=== PATIENT | female | born 1960 | race Caucasian/White ===

== ENCOUNTER → 2016-12-27 12:57 | Outpatient (CLI) | payer MEDICAID ==
[2014-10-28 09:45] VITALS: BMI 20.8
[~2016-12-27 12:57] MED LIST: HYDROCODON-ACE1 EAC7 PO; XANAX1 MG PO
== END | disposition home or self-care (01) ==
LOC: D.US 12:57
DX: R09.89 Other specified symptoms and signs involving the circulatory and respiratory systems (principal)

== ENCOUNTER → 2017-01-01 14:06 | Outpatient (CLI) | payer MEDICAID ==
[2014-10-28 09:45] VITALS: BMI 20.8
== END | disposition home or self-care (01) ==
LOC: D.CT 14:06
DX: I73.9 Peripheral vascular disease, unspecified (principal)

== ENCOUNTER 2017-01-09 14:55 | Inpatient (IN) | payer MEDICAID ==
[~2017-01-09] VITALS: Ht 170.2 cm; Wt 69.1 kg
--- NOTE | ~2017-01-09 | HEMODYNAMI ---
PATIENT:NAN SILVERIO MEDICAL RECORD: [id number] : 58 [id number] ADMISSION DATE: 01/09/17 Generatedon:01/10/201713:07 Patient name: NAN SILVERIO Patient #: [id number] SSN : : 1960 Date of study: 01/10/2017 Page: Of Hemodynamic Procedure Report Patient Data Patient Demographics Procedure consent was obtained First Name: NAN Gender: Female Last Name: JEAN CLAUDE : 1960 Middle Initial: E Age: 56 year(s) Patient #: [id number] Race: Unknown Additional ID: [id number] Contact details Address: [address] [place] [address] State: [place] City: [place] Zip code: [address] Admission Admission Data Admission Date: 01/09/2017 Admission Time: 14:55 Room #: D.2238 Procedure Procedure Types Cath Procedure Peripheral Cath Diagnostic Procedure Miscellaneous Procedure Description Procedure Date Procedure Date: 01/10/2017 Procedure Start Time: 11:03 Procedure Staff Name Function Temo Lopes MD Performing Physician Geno Downing RT Scrub Anahi Avila RN Nurse Prosper Gimenez RT Monitor Procedure Data Cath Procedure Fluoroscopy Diagnostic fluoroscopy Total fluoroscopy Time: 11 time: 11 min min Diagnostic fluoroscopy Total fluoroscopy dose: 464 dose: 464 mGy mGy Contrast Material Contrast Material Type Amount (ml) Isovue 300 154 Entry Location Entry Primary Successful Side Size Upsize Upsize Entry Closure Succes sful Closure Location (Fr) 1 (Fr) 2 (Fr) Remarks Device Remarks Femoral Right 5 Fr 6 Fr Exoseal artery Short Femoral Left 5 Fr 6 Fr Exoseal artery Short Diagnostic catheters Device Type Used For End Catheter Placement Merit ULTRA BOLUS FLUSH 5Fr 65CM catheter Procedure Medications Medication Administration Route Dosage Benadryl I.V. 50 mg Zofran I.V. 4 mg Versed I.V. 1 mg Fentanyl I.V. 50 mcg Heparin Bolus I.V. 5000 units Nitroglycerin IC/IA I.A. 200 mcg Fentanyl I.V. 50 mcg Versed I.V. 1 mg Heparin Bolus I.V. 2000 units Fentanyl I.V. 50 mcg Versed I.V. 1 mg Fentanyl I.V. 50 mcg Versed I.V. 1 mg Hemodynamics Rest Heart Rate: 77 (bpm) Snapshots Pre Cath Intra NCS Post Cath Vital Signs Time Heart Resp SPO2 NIBP (mmHg) Rhythm Pain Sedation Rate (ipm) (%) Status Level (bpm) 10:52:23 69 16 95 143/75(120) NSR 0 (11) 10(A) , No pain 10:56:37 75 23 98 143/79(102) NSR 0 (11) 10(A) , No pain 11:00:51 78 14 96 155/80(120) NSR 0 (11) 10(A) , No pain 11:05:07 74 16 97 150/79(120) NSR 0 (11) 10(A) , No pain 11:09:27 77 16 97 142/69(113) NSR 0 (11) 10(A) , No pain 11:13:43 75 14 98 144/70(106) NSR 0 (11) 9(A) , No pain 11:17:59 73 15 98 141/73(98) NSR 0 (11) 9(A) , No pain 11:22:15 76 18 99 132/71(106) NSR 0 (11) 9(A) , No pain 11:26:27 74 16 98 123/74(113) NSR 0 (11) 9(A) , No pain 11:30:37 75 14 97 120/69(93) NSR 0 (11) 9(A) , No pain 11:34:47 75 13 97 126/69(89) NSR 0 (11) 9(A) , No pain 11:38:59 74 13 98 132/65(99) NSR 0 (11) 9(A) , No pain 11:43:13 72 14 98 128/68(106) NSR 0 (11) 9(A) , No pain 11:47:25 75 15 96 133/69(94) NSR 0 (11) 9(A) , No pain 11:51:37 75 19 96 140/74(111) NSR 0 (11) 9(A) , No pain 11:55:51 74 24 96 127/74(112) NSR 0 (11) 9(A) , No pain 12:00:01 73 15 98 143/72(101) NSR 0 (11) 9(A) , No pain 12:04:17 71 15 96 143/73(116) NSR 0 (11) 9(A) , No pain 12:08:33 72 14 100 121/73(95) NSR 0 (11) 9(A) , No pain 12:12:41 74 18 98 132/70(104) NSR 0 (11) 9(A) , No pain 12:16:54 72 17 97 135/67(115) NSR 0 (11) 9(A) , No pain 12:21:08 81 15 96 135/68(101) NSR 0 (11) 9(A) , No pain 12:25:22 75 15 96 150/74(99) NSR 0 (11) 9(A) , No pain 12:29:41 70 14 96 149/75(119) NSR 0 (11) 9(A) , No pain 12:33:55 78 23 99 135/86(95) NSR 0 (11) 9(A) , No pain 12:38:09 75 13 97 127/71(109) NSR 0 (11) 9(A) , No pain 12:42:19 79 17 97 142/76(114) NSR 0 (11) 9(A) , No pain 12:46:34 80 19 95 120/73(92) NSR 0 (11) 9(A) , No pain 12:50:46 83 16 96 139/72(107) NSR 0 (11) 9(A) , No pain 12:55:00 80 19 96 134/74(113) NSR 0 (11) 9(A) , No pain 12:59:12 76 12 94 143/77(122) NSR 0 (11) 9(A) , No pain 13:03:26 80 7 95 145/74(84) NSR 0 (11) 9(A) , No pain Medications Time Medication Route Dose Verified Delivered Reason Notes Ef fectiveness by by 11:00:15 Benadryl I.V. 50 mg Anahi Anahi for itching Margarita Avila RN RN 11:00:51 Zofran I.V. 4 mg Anahi Anahi for nausea Margarita Avila RN RN 11:10:05 Versed I.V. 1 mg Anahi Anahi for sedation Margarita Avila RN RN 11:10:21 Fentanyl I.V. 50 Anahi Anahi for sedation mcg Margarita Avila RN RN 11:40:29 Heparin Bolus I.V. 5000 Anahi Anahi for units Margarita Margarita anticoagulation RN RN 11:42:15 Nitroglycerin I.A. 200 Anahi Temo IC/IA mcg Margarita Lopes MD RN 12:00:45 Fentanyl I.V. 50 Anahi Anahi for sedation mcg Margarita Avila RN RN 12:00:53 Versed I.V. 1 mg Anahi Anahi for sedation Margarita Avila RN RN 12:25:36 Heparin Bolus I.V. 2000 Anahi Anahi for units Margarita Margarita anticoagulation RN RN 12:30:46 Fentanyl I.V. 50 Anahi Anahi for sedation mcg Margarita Avila RN RN 12:30:53 Versed I.V. 1 mg Anahi Anahi for sedation Margarita Avila RN RN 12:40:02 Fentanyl I.V. 50 Anahi Anahi for sedation mcg Margarita Avila RN RN 12:40:13 Versed I.V. 1 mg Anahi Anahi for sedation Margarita Avila RN showplace manager Log Time Note 10:24:14 Prosper Gimenez RT (R) (CV) sent for patient. Start room use. 10:24:25 Time tracking: Regular hours 10:24:29 Plan of Care:Hemodynamics will remain stable., Cardiac rhythm will remain stable., Comfort level will be maintained., Respiratory function will remain adequate., Patient/ family verbilizes understanding of procedure., Procedure tolerated without complication., Recovers from procedure without complications.. 10:24:35 Patient received from Med/Surg to IR Alert and oriented. Tansferred to table in Supine position. 10:24:37 Correct patient and procedure confirmed by team. 10:24:39 Signed procedure consent form obtained from patient. 10:24:40 Full Disclosure recording started 10:24:41 ECG and BP/O2 sat monitors applied to patient. 10:24:44 - 10:24:51 H&P Date Dictated: 01/10/2017 H&P Addendum completed by physician on day of procedure. (MUST COMPLETE FOR ALL OUTPATIENTS). 10:24:53 Pre-procedure instructions explained to patient. 10:24:53 Pre-op teaching completed and patient verbalized understanding. 10:24:55 Family in waiting room. 10:24:58 Patient NPO since Dinner. 10:36:06 Use device set IR Diagnostic 10:36:07 Acist Syringe opened to sterile field. 10:36:08 Acist Hand Control opened to sterile field. 10:36:08 Acist Manifold opened to sterile field. 10:36:08 Bag Decanter opened to sterile field. 10:36:09 Sterile Angiographic Pack opened to sterile field. 10:36:16 Is the patient allergic to Iodine/contrast media? No. 10:36:18 Was the patient premedicated? No 10:36:20 Is patient on blood thinner?Yes 10:36:23 ACC The patient was administered the following blood thiners within the last 24 hours: ACCAspirin 10:36:26 Patient diabetic? No. 10:36:27 - 10:36:28 ----Pre-sedation anethsthesia assessment.---- 10:36:32 Previous problem with sedation/anesthesia? No ? 10:36:33 Snore? Yes 10:36:35 Sleep apnea? No 10:36:37 Deviated septum? No 10:36:37 Opens mouth fully? Yes 10:36:39 Sticks out tongue? Yes 10:36:41 Airway obstruction? No ? 10:36:43 Dentures? Yes ? 10:36:44 - 10:36:52 Pre procedure: right dorsailis pedis pulse Doppler 10:36:55 Pre procedure: left dorsailis pedis pulse Doppler 10:36:58 Pre procedure: right posterior tibial pulse Doppler 10:37:01 Pre procedure: left posterior tibial pulse Doppler 10:37:13 Patient pain scale 0/10 no pain. 10:37:22 IV patent on arrival in right wrist with 0.9% NaCl at [facility]. 10:37:27 Sharps counted by scrub and verified by R.NBreonna 10:37:27 Alarms reviewed by RBreonna N. 10:37:30 Bilateral groins area was prepped with chlora-prep and draped in steril e fashion 10:51:14 Baseline sample Acquired. 10:51:14 Vital chart was started 10:51:18 Rhythm: sinus rhythm 10:57:39 Physician arrived 10:57:39 --------ALL STOP TIME OUT------ 10:57:40 Final Timeout: patient, procedure, and site verified with staff and physician. All members of the team are in agreement. 10:57:43 Bilateral groins site verified by team. 10:57:47 Physical assessment completed. ASA score P 2 - A patient with mild systemic disease as per Temo Lopes MD. 10:57:51 Sedation plan: IV Moderate Sedation Versed, Fentanyl 11:00:15 Benadryl 50 mg I.V. was administered by Anahi Avila RN; for itching; 11:00:51 Zofran 4 mg I.V. was administered by Anahi Avila RN; for nausea; 11:00:52 Procedure started. 11:03:03 Local anesthetic to right femoral artery with Lidocaine 1% by Temo Lopes MD.INITIAL ACCESS ONLY 11:10:05 Versed 1 mg I.V. was administered by Anahi Avila RN; for sedation; 11:10:21 Fentanyl 50 mcg I.V. was administered by Anahi Avila RN; for sedation; 11:11:49 A Merit ULTRA BOLUS FLUSH 5Fr 65CM catheter was advanced over the wire and used for . 11:11:50 Terumo 5Fr Mcalpin Sheath opened to sterile field. 11:11:51 Micropuncture VSI 4FR kit opened to sterile field. 11:11:52 Genymobile DOC .035 guide wire opened to sterile field. 11:11:53 TUBING, CONTRAST INJCTN HI PRES opened to sterile field. 11:12:03 A 5 Fr sheath was inserted into the Right Femoral artery 11:22:07 Local anesthetic to left femerol artery with Lidocaine 1% by Temo Lopes MD.ADDITIONAL ACCESS 11:22:52 A 5 Fr sheath was inserted into the Left Femoral artery 11:23:30 Cordis 5Fr BRITE TIP 11cm sheath opened to sterile field. 11:30:34 Genymobile DOC .035 guide wire opened to sterile field. 11:31:12 TerumSatmetrix ANGLE 180L glide wire opened to sterile field. 11:31:12 CXI Catheter 90cm opened to sterile field. 11:31:30 TerAgorique TORQUE DEVICE PLASTIC .038 opened to sterile field. 11:40:29 Heparin Bolus 5000 units I.V. was administered by Anahi Avila RN; for anticoagulation; 11:42:15 Nitroglycerin IC/IA 200 mcg I.A. was administered by Temo Lopes MD; ; 11:47:01 BasixTOUCH Inflation Syringe opened to sterile field. 11:47:34 Cook BLANCA 260 guide wire opened to sterile field. 11:59:26 Cordis 6Fr BRITE TIP 11cm sheath opened to sterile field. 11:59:27 Cordis 6Fr BRITE TIP 11cm sheath opened to sterile field. 11:59:34 Sheath upsized to a 6 Fr Short. 11:59:41 Sheath upsized to a 6 Fr Short. 12:00:27 Inflation number: 1 A Cordis Powerflex Pro 4.0 x 40 x 135cm balloon was prepped and advanced across the Proximal Common Iliac, Left, then inflated to 0 SIOMARA for 0:00 (min:sec). 12:00:45 Fentanyl 50 mcg I.V. was administered by Anahi Avila RN; for sedation; 12:00:53 Versed 1 mg I.V. was administered by Anahi Avila RN; for sedation; 12:03:21 BasixTOUCH Inflation Syringe opened to sterile field. 12:05:28 Terumo 5FR ANGLED 65CM glide catheter opened to sterile field. 12:08:04 Cordis SMART 10 X 40 X 120 stent was deployed across Proximal Common Iliac, Right . 12:08:07 Cook BLANCA 260 guide wire opened to sterile field. 12:08:16 Cordis SMART 10 X 60 X 120 stent was deployed across Proximal Common Iliac, Left . 12:14:46 Inflation number: 2 A Cordis Powerflex Pro 8.0 x 40 x 80cm balloon was prepped and advanced across the Proximal Common Iliac, Left, then inflated to 0 SIOMARA for 0:00 (min:sec). 12:15:10 Inflation number: 1 A Cordis Powerflex Pro 8.0 x 40 x 80cm balloon was prepped and advanced across the Proximal Common Iliac, Right, then inflated to 0 SIOMARA for 0:00 (min:sec). 12:23:34 Cordis SMART 8 X 60 X 120 stent was deployed across Proximal Common Iliac, Left . 12:25:36 Heparin Bolus 2000 units I.V. was administered by Anahi Avila RN; for anticoagulation; 12:26:08 Inflation number: 3 A Cordis Powerflex Pro 6.0 X 60 X 135 balloon was prepped and advanced across the Proximal Common Iliac, Left, then inflated to 0 SIOMARA for 0:00 (min:sec). 12:30:46 Fentanyl 50 mcg I.V. was administered by Anahi Avila RN; for sedation; 12:30:53 Versed 1 mg I.V. was administered by Anahi Avila RN; for sedation; 12:35:55 7 x 60 everflex stent deployed lot#[id number] 12:40:02 Fentanyl 50 mcg I.V. was administered by Anahi Avila RN; for sedation; 12:40:13 Versed 1 mg I.V. was administered by Anahi Avila RN; for sedation; 12:44:38 Cordis 6Fr Exoseal opened to sterile field. 12:44:38 Cordis 6Fr Exoseal opened to sterile field. 12:52:45 Sheath removed intact; hemostasis achieved with Exoseal to the Right Femoral artery. 12:53:03 Sheath removed intact; hemostasis achieved with Exoseal to the Left Femoral artery. 12:53:27 Procedure ended.(Physican Out) 13:01:52 Fluoroscopy time 11.00 minutes. 13:02:02 Fluoroscopy dose: 464 mGy 13:02:02 Flurop Dose total: 464 13:02:13 Contrast amount:Isovue 300 154ml. 13:02:15 Sharps counted by scrub and verified by R.N. 13:02:19 Post-op/insertion site Right Femoral artery dressed using a 4 x 4 and Tegaderm. 13:02:22 Post-op/insertion site Left Femoral artery dressed using a 4 x 4 and Tegaderm. 13:02:27 Post right femoral artery:stable 13:02:31 Post left femerol artery:stable 13:02:32 Post Procedure Pulses reassessed and unchanged 13:02:36 Post-procedure physical assessment completed. ASA score P 2 - A patient with mild systemic disease as per Temo Lopes MD. 13:02:38 Post procedure rhythm: unchanged. 13:02:40 Post procedure instruction explained to patient.Patient verbalizes understanding. 13:02:41 Procedure and supply charges have been captured, reviewed, submitted an d are correct. 13:06:01 Report given to Med/Surg. 13:06:06 Patient transfered to Med/Surg with Bed. 13:07:49 Vital chart was stopped Intervention Summary Intervention Notes Time ActionType Lesion and Equipment Action# Pressure Duration Attributes Used 12:00:27 Inflate Proximal Cordis 1 0 00:00 balloon Common Powerflex Iliac, Left Pro 4.0 x 40 x 135cm balloon 12:08:04 Deploy self Proximal Cordis 1 expanding Common SMART 10 stent Iliac, X 40 X Right 120 stent 12:08:16 Deploy self Proximal Cordis 1 expanding Common SMART 10 stent Iliac, Left X 60 X 120 stent 12:14:46 Inflate Proximal Cordis 2 0 00:00 balloon Common Powerflex Iliac, Left Pro 8.0 x 40 x 80cm balloon 12:15:10 Inflate Proximal Cordis 1 0 00:00 balloon Common Powerflex Iliac, Pro 8.0 x Right 40 x 80cm balloon 12:23:34 Deploy self Proximal Cordis 1 expanding Common SMART 8 X stent Iliac, Left 60 X 120 stent 12:26:08 Inflate Proximal Cordis 3 0 00:00 balloon Common Powerflex Iliac, Left Pro 6.0 X 60 X 135 balloon Device Usage Item Name Manufacture Quantity Catalog Number Hospital Part Current Min imal Lot# / Charge Number Stock Stock Serial# Code Acist Syringe Acist 1 75733 165781 153762 902695 20 Medical Systems Inc Acist Hand Acist 1 96694 973472 432618 053090 5 Control Medical Systems Inc Acist Acist 1 71569 467433 635469 011531 5 Manifold Medical Systems Inc Bag Decanter Microtek 1 2002S 502811 78909 576282 5 Medical Inc. Sterile Cardinal 1 [id number] 969725 062894 5 Angiographic Health Pack Merit ULTRA Merit 1 [id number] 765676 371672 5 BOLUS FLUSH Medical 5Fr 65CM catheter Terumo 5Fr Terumo 1 [id number] 365034 307319 811635 40 Mcalpin Sheath Micropuncture VSI VASCULAR 1 7266V 820886 082208 5 VSI 4FR kit SOLUTIONS Cook DOC .035 [facility] 2 E27903 225862 709275 5 [id number] guide wire 9351546 TUBING, Merit 1 [id number] 008025 050983 234810 5 CONTRAST Medical INJCTN HI PRES Cordis 5Fr Cardinal 1 [id number] 631800 400563 5 BRITE TIP Health 11cm sheath Terumo ANGLE Terumo 1 [id number] 635032 240891 227665 5 180L glide wire CXI Catheter [facility] 1 [id number] 332213 675020 216765 5 [id number] 90cm Terumo TORQUE [place] 1 TD01 692716 752042 132894 5 DEVICE Scientific PLASTIC .038 BasixTOUCH Merit 2 ZT9006 783685 126976 154333 5 Inflation Medical Syringe Cook BLANCA [facility] 2 W92692 014431 083997 5 5689530 260 guide 0526957 wire Cordis 6Fr Cardinal 2 [id number] 259356 799473 5 BRITE TIP Health 11cm sheath Cordis Cardinal 1 [id number] 829013 930089 104907 5 Powerflex Pro Health 4.0 x 40 x 135cm balloon Terumo 5FR Terumo 1 [id number] 272680 544287 5 ANGLED 65CM glide catheter Cordis SMART Cardinal 1 [id number] 058639 171336 5 [id number] 10 X 40 X 120 Health stent Cordis SMART Cardinal 1 [id number] 049714 351117 5 28604856 10 X 60 X 120 Health stent Cordis Cardinal 2 [id number] 474426 419425 718310 5 Powerflex Pro Health 8.0 x 40 x 80cm balloon Cordis SMART Cardinal 1 [id number] 189652 085969 5 80660881 8 X 60 X 120 Health stent Cordis Cardinal 1 [id number] 139355 164753 733962 5 Powerflex Pro Health 6.0 X 60 X 135 balloon Cordis 6Fr Cardinal 2 EX600 921771 254747 863135 10 [id number] [facility] [employer] [id number] Signature Audit [place] Stage Time Signature Unsigned Intra-Procedure 01/10/2017 Prosper 1:07:45 PM Ammy RT (R) (CV) Signatures Monitor : Prosper Signature : Ammy RT Date : Time : [facility] [address] [place] [address]
[2017-01-09 16:11] VITALS: BP 150/73
[2017-01-09 16:29] LABS: BASOPHILS 0.2 % (0-2); EOSINOPHILS 2.2 % (0-7); HEMATOCRIT 41.3 % (36.0-48.0); IMMATURE GRANULOCYTES 0.4 % (0-5); LYMPHOCYTES 33.8 % (15-50); MCHC 33.9 g/dL (31.0-37.0); MCV 94.3 fL (80.0-100.0); MEAN PLATELET VOLUME 8.7 fL (7.4-10.4); MONOCYTES 10.4 % (2-11); PLATELET COUNT 120 10x3/uL (130-400); RBC 4.38 10x6/uL (4.00-5.40); RDW 13.2 % (11.5-14.5); WBC 5.5 10x3/uL (4.8-10.8)
[2017-01-09 16:42] LABS: INR 0.89 (0.85-1.17); PROTIME 11.9 SECONDS (11.6-15.0)
[2017-01-09 16:50] LABS: ALBUMIN 3.8 g/dL (3.4-5.0); ALKALINE PHOSPHATASE 43 U/L (46-116); ALT (SGPT) 30 U/L (10-68); BILIRUBIN - TOTAL 0.23 mg/dL (0.2-1.3); CALC OSMOLALITY 278 mosm/kg (275-300); CALCIUM 9.3 mg/dL (8.5-10.1); CARBON DIOXIDE 25.6 mmol/L (21.0-32.0); CHLORIDE - SERUM 104 mmol/L (98-107); CHOL - HDL RATIO 4.2 ratio (2.3-4.1); CHOLESTEROL, TOTAL 240 mg/dL (0-200); CREATININE - SERUM 0.7 mg/dL (0.6-1.3); GLUCOSE 106 mg/dL (74-106); HDL CHOLESTEROL 57 mg/dL (32-96); LDL CHOLESTEROL 164 mg/dL (0-100); LDL-HDL RATIO 2.9 ratio (1.5-3.5); POTASSIUM - SERUM 3.7 mmol/L (3.5-5.1); PROTEIN - SERUM 6.8 g/dL (6.4-8.2); SODIUM 140 mmol/L (136-145); TRIGLYCERIDE 99 mg/dL (30-200); UREA NITROGEN 12 mg/dL (7-18); eGFR NON AFRICAN AMERICAN > 90 mL/min (90-120)
[2017-01-09] MEDS ORDERED: HYDROCODONE-APA1 TAB PO (17:42)
[2017-01-09] MEDS ORDERED: BAYER CHEWABLE81 MG PO (17:42)
[2017-01-09] MEDS ORDERED: VALIUM10 MG PO (17:43)
[2017-01-09 17:44] VITALS: Ht 170.2 cm; Wt 69.1 kg
--- NOTE | 2017-01-09 19:40 | NUR ---
ASSESSMENT COMPLETED, NO ACUTE DISTRESS NOTED, FAMILY IN ROOM, R WRIST IV INFUSING WITH EASE, DENIES NEEDS AT THIS TIME, SR'S UP, CL IN REACH, WILL MONITOR
[2017-01-09 20:00] VITALS: BP 129/76
--- NOTE | 2017-01-09 20:52 | NUR ---
PRN ATIVAN GIVEN PER MAR FOR ANXIETY, SILVINA WELL, DENIES NEEDS, CL IN REACH
--- NOTE | 2017-01-09 22:40 | NUR ---
SITTING UP IN BED TALKING WITH VISITOR, DENIES NEEDS AT THIS TIME, REMINDED OF NPO STATUS AFTER MIDNIGHT, UNDERSTANDING VOICED, SR'S UP, CL IN REACH
--- NOTE | 2017-01-09 23:48 | NUR ---
RESTING WITH NO EYES CLOSED, RESP WITH EASE, NO DISTRESS NOTED, FALL PRECAUTIONS IN PLACE, FAMILY IN ROOM, CL IN REACH
[2017-01-10] VITALS (11 sets, daily range): BP systolic 15–168; BP diastolic 57–78
--- NOTE | 2017-01-10 01:33 | NUR ---
RESTING WITH EYES CLOSED, RESP WITH EASE, NO DISTRESS NOTED, DTR IN ROOM, SR'S UP, CL IN REACH
--- NOTE | 2017-01-10 08:18 | NUR ---
AWAKE AND ALERT. ORIENTED X3. UP TO BR WITH SBA. HAD APPROXIMATLY 300CC EMESIS. ASSISTED TO PERFORM ORAL CARE PER STAFF. LUNGS ARE CLEAR BILATERALLY, NO COUGH NOTED. SKIN IS INTACT WITHOUT REDNESS. IV TO RIGHT WRIST PATENT WITHOUT REDNESS AT INSERTION SITE. PEDAL PULSES VERY FAINT. BILATERAL FEET WARM. FAMILY AT BEDSIDE.
--- NOTE | 2017-01-10 08:19 | NUR ---
Patient Name: NAN SILVERIO Admission Status: Elective Accout number: [id number] Admission Date: 01-09-2017 : 1960 Admission Diagnosis: Attending: TONY Current LOS: 1 Anticipated DC Date: 01-13-2017 Planned Disposition: Home Primary Insurance: [place] [employer] [facility] Discharge Planning Comments: CM MET WITH PATIENT AND DAUGHTER IN LAW (CLOVIS) REGARDING D/C NEEDS AND PLANS. PATIENT LIVES WITH HER DAUGHTER (MARLA) AND IT IS SAFE AND THERE ARE 2 STEPS W/RAILS TO ENTER HOME AND NO STAIRS INSIDE. PATIENTS FAMILY WILL DRIVE HER HOME. PATIENT IS INDEPENDENT AT HOME AND HAS NO DME. PATIENTS PCP IS DR. AGUILAR AND PHARMACY IS [facility] ON [address]. PATIENT DOES NOT THINK SHE WILL NEED HOME HEALTH. CM WILL CONTINUE TO FOLLOW PATIENT WITH D/C NEEDS AND PLANS. PCP DR. LAUREN [facility] [address] [phone] CLOVIS (DIL) [phone] MARLA (DAUGHTER) [phone] Hoop Coiler: Judy Mcqueen Is the patient Alert and Oriented? Yes 0 * How many steps to enter\exit or inside your home? 2 W/RAILS 0 * PCP DR. AGUILAR 0 * Pharmacy [facility] [address] 0 * Preadmission Environment Home with Family 0 * ADLs Independent 0 * Equipment None 0 * List name and contact numbers for known caregivers / representatives who currently or will assist patient after discharge: CLOVIS (DAUGHTER IN LAW) [phone] MARLA (DAUGHTER) [phone] 0 * Community resources currently utilized None 0 * Additional services required to return to the preadmission environment? Yes 0 * Can the patient safely return to the preadmission environment? Yes 0 * Has this patient been hospitalized within the prior 30 days at any hospital? No 0 Grand Total: 0
--- NOTE | 2017-01-10 10:45 | NUR ---
OFF UNIT VIA BED FOR PROCEDURE.
--- NOTE | 2017-01-10 13:26 | NUR ---
RETURNED FROM PROCEDURE. DRESSINGS TO BILATERAL GROINS DRY AND INTACT. PEDAL PULSES PALPABLE. FAMILY IN ROOM.
--- NOTE | 2017-01-10 14:40 | NUR ---
ASSISTED WITH BED RICHARD PER STAFF. VOIDED 200CC CLEAR YELLOW URINE. VSS. GROINS CONTINUE DRY AND INTACT. PEDAL PULSES PALLPABLE.
[2017-01-10 15:11] LABS: HEMATOCRIT 41.8 % (36.0-48.0); HEMOGLOBIN 13.8 g/dL (12-16); MCH 31.7 pg (26.0-34.0); MCV 96.1 fL (80.0-100.0); MEAN PLATELET VOLUME 8.7 fL (7.4-10.4); RBC 4.35 10x6/uL (4.00-5.40); RDW 13.3 % (11.5-14.5); WBC 6.1 10x3/uL (4.8-10.8)
[2017-01-10 15:23] LABS: INR 1.02 (0.85-1.17); PROTIME 13.3 SECONDS (11.6-15.0)
[2017-01-10 15:24] LABS: APTT 102.7 SECONDS (22.8-39.4)
--- NOTE | 2017-01-10 16:30 | NUR ---
UP TO BR WITH STAFF. VOIDED WITHOUT DIFFICULTY. C/O TERRIBLE HEADACHE.
--- NOTE | 2017-01-10 18:00 | NUR ---
DR NICHOLSON NOTIFIED OF C/O INTENSE HEADACHE. NEW ORDERS RECEIVED.
--- NOTE | 2017-01-10 18:15 | NUR ---
DR NICHOLSON HERE. GIVEN TYLENOL AND TORADOL FOR HEADACHE. WILL MONITOR.
--- NOTE | 2017-01-10 18:56 | NUR ---
IV SITED TO LEFT FOREARM AFTER ONE ATTEMPT WITH 22G. HEPARIN DRIP INITIATED AT THIS TIME.
--- NOTE | 2017-01-10 19:35 | NUR ---
ALERT, AWAKE TALKING TO VISITOR. RATES PAIN LEVEL OF LEFT FOOT AT 8 ON 0-10 NUMBER SCALE, DESCRIBED THOBBING. HAS WINDER TENDER WITH DILAUDID FOR PAIN CONTROL. IV IN R WRIST WITH NS INFUSING AT 30 ML/HR AND WINDER TENDER WITH DILAUDID. L FA IV HAS HEPARIN INFUSING AT 13 ML/HR. DENIES ANY NEEDS. CALL LIGHT IN REACH.
--- NOTE | 2017-01-10 21:11 | NUR ---
REFILLED BASKET ASSEMBLER DILAUDID SYRINGE. RATES PAIN LEVEL AT 6 OF LEFT FOOT, DESCRIBED A THROBBING PAIN.
--- NOTE | 2017-01-10 22:00 | NUR ---
PTT LAB RESULT IS 75.4. NO CHANGES MADE PER HEPARIN PROTOCOL. NEXT PTT LAB IS IN AM.
[2017-01-11] VITALS: BP 122/53
--- NOTE | 2017-01-11 03:03 | NUR ---
AMBULATED TO BATHROOM AND TO SINK TO BRUSH TEETH. REQUESTED SOME MILK.
[2017-01-11 03:55] LABS: HEMATOCRIT 38.3 % (36.0-48.0); HEMOGLOBIN 12.7 g/dL (12-16); MCH 31.8 pg (26.0-34.0); MCHC 33.2 g/dL (31.0-37.0); MCV 95.8 fL (80.0-100.0); MEAN PLATELET VOLUME 9.1 fL (7.4-10.4); RDW 13.2 % (11.5-14.5)
[2017-01-11 04:00] VITALS: BP 131/83
--- NOTE | 2017-01-11 04:40 | NUR ---
PTT 200.0. TURNED HEPARIN DRIP OFF FOR 1 HOUR PER PROTOCOL. ORDER NEXT PTT LAB DRAW AT 10:40 A.M.
--- NOTE | 2017-01-11 05:40 | NUR ---
RESTARTED HEPARIN DRIP AT 10 ML/HR. TURNED DOWN FROM 13 ML/HR.
[2017-01-11 08:18] VITALS: BP 123/65
--- NOTE | 2017-01-11 08:33 | NUR ---
SCHEDULED MEDICATIONS ADMINISTERED WELL PRN ZOFRAN FOR NAUSEA AT THIS TIME. ASSESSMENT PERFORMED. CALL LIGHT IN REACH, WILL CONTINUE WITH PLAN OF CARE.
--- NOTE | 2017-01-11 11:15 | NUR ---
SCHEDULED MEDICATIONS ADMINISTERED AT THIS TIME. CALL LIGHT IN REACH, WILL CONTINUE WITH PLAN OF CARE.
[2017-01-11] MEDS ORDERED: PLAVIX75 MG PO (12:14)
[2017-01-11] MEDS ORDERED: LIPITOR10 MG PO (12:15)
[2017-01-11] MEDS ORDERED: LOW DOSE ASPIRI81 M1 PO (12:15)
--- NOTE | 2017-01-11 12:30 | NUR ---
D/C HOME AT THIS TIME. IV D/C WITH CATH TIP INTACT X2. DENIES QUESTIONS OR CONCERNS. C/O MIGRAINE HEADACHE.
--- NOTE | 2017-01-11 13:04 | NUR ---
CALLED [facility] AT [phone] AND SPOKE TO RIGOBERTO WITH NEW PRESCRIPTIONS.
== END 2017-01-11 12:45 | disposition home or self-care (01) | DRG 254 ==
LOC: D.MS 14:55 → D.SDCHOLD 14:55 → D.MS 15:14
PROVIDERS: General Practice; ADMIT Surgery
PROC: 047D3DZ Dilation of Left Common Iliac Artery with Intraluminal Device, Percutaneous Approach (ICD-10-PCS; 2017-01-10)
PROC: 047C3DZ Dilation of Right Common Iliac Artery with Intraluminal Device, Percutaneous Approach (ICD-10-PCS; 2017-01-10)
PROC: 047J3DZ Dilation of Left External Iliac Artery with Intraluminal Device, Percutaneous Approach (ICD-10-PCS; 2017-01-10)
PROC: B41F1ZZ Fluoroscopy of Right Lower Extremity Arteries using Low Osmolar Contrast (ICD-10-PCS; 2017-01-10)
PROC: B41G1ZZ Fluoroscopy of Left Lower Extremity Arteries using Low Osmolar Contrast (ICD-10-PCS; principal; 2017-01-10 11:00)
DX: I70.213 Atherosclerosis of native arteries of extremities with intermittent claudication, bilateral legs (principal); I70.223 Atherosclerosis of native arteries of extremities with rest pain, bilateral legs; F41.9 Anxiety disorder, unspecified; F32.9 Major depressive disorder, single episode, unspecified; Z72.0 Tobacco use

== ENCOUNTER 2017-02-03 10:18 | Emergency (ER) | payer MEDICAID ==
[2017-01-09 17:44] VITALS: BMI 23.8
[~2017-02-03 10:18] MED LIST changes: +BAYER CHEWABLE81 MG PO; +HYDROCODONE-APA1 TAB PO; +LIPITOR10 MG PO; +LOW DOSE ASPIRI81 M1 PO; +PLAVIX75 MG PO; +VALIUM10 MG PO
== END 2017-02-03 13:18 | disposition home or self-care (01) ==
LOC: D.ER 10:18
DX: Z03.89 Encounter for observation for other suspected diseases and conditions ruled out (principal)

== ENCOUNTER → 2017-05-22 09:24 | Outpatient (CLI) | payer OTHER ==
[2017-01-09 17:44] VITALS: BMI 23.8
== END | disposition home or self-care (01) ==
LOC: D.RT 09:24
DX: Z02.71 Encounter for disability determination (principal)

== ENCOUNTER → 2017-07-11 09:30 | Outpatient (CLI) | payer MEDICAID ==
[2017-01-09 17:44] VITALS: BMI 23.8
== END | disposition home or self-care (01) ==
LOC: D.MRI 06-24 10:00
DX: R16.0 Hepatomegaly, not elsewhere classified (principal)